=== PATIENT | female | born 1935 | race Caucasian/White ===

== ENCOUNTER → 2016-12-28 | Outpatient (CLI) | payer MEDICARE, BC ==
[~2016-12-28] MED LIST: ACETAMINOPHEN PR; ALEVE220 M1 PO; CALCIUM + D 6001 TA1 PO; CALCIUM 500 + D1 TAB PO; CERTAGEN PO; EC-NAPROSYN500 MG PO; LEVOTHYROXINE112 MCG PO; LIPITOR PO; LORTAB 7.5-5001 TAB PO; NORVASC PO; OMEPRAZOLE20 M2 PO; PERCOCET5/325 PO; PHENERGAN PO; PRAVASTATIN SOD80 MG PO; VITAMIN C PO; ZESTORETIC 20/11 TAB PO; ZESTORETIC PO
--- NOTE | ~2016-12-28 | MY6 ---
[facility] RADIOLOGY TEXT RESULTS PATIENT: ELMER DE LEON LOCATION: [facility] : 37 UNIT #: [id number] AGE: [address]: Gabriel Borden MD SEX: F ORDER DR: [id number] [facility]. [place], [place] [address] [id number] O MR#: [id number] Acc #: [id number] NAME: ELMER DE LEON : 1935 SEX: F STUDY DATE/TIME: 12/28/2016 14:36 UNIT: [facility] ROOM: STUDY DESCRIPTION: MY Mammogram Dx Dig Luis Attending Physician: Gabriel Borden M.D. Referring Physician: Gabriel Borden M.D. Ordering Physician: Gabriel Borden M.D. Primary Care Physician: Jhony Kohler D.O. MEDICAL IMAGING REPORT This report is preliminary unless electronic signature is present EXAM Bilateral digital diagnostic mammogram with CAD. DATE OF EXAM 12/28/2016 CLINICAL HISTORY 81-year-old female with diffuse left breast pain and medial right-sided breast pain. No personal history of breast cancer. FINDINGS The background breast parenchyma consists of scattered fibroglandular densities. No suspicious mass, microcalcification, architectural distortion. Exam is compared to prior mammogram dated 01/27/2016 and 01/15/2015. IMPRESSION Negative mammogram. BIRADS 1. RECOMMENDATIONS: Annual screening mammogram. Patients over the age of 40 are entered into a reminder system with target due date for the next mammogram. A result letter will also be sent to the patient. BIRADS: 1 Negative. Dictated by... Aubrey Amos M.D. THIS IS AN ELECTRONICALLY VERIFIED REPORT [facility] A Service [facility] RADIOLOGY TEXT RESULTS PATIENT: ELMER DE LEON LOCATION: [facility] : 37 UNIT #: [id number] AGE: [address]: Gabriel Borden MD SEX: F ORDER DR: Aubrey Amos M.D. at 12/28/2016 4:13 PM DIANA/dyan TD: 12/28/2016 15:55 JOB #: [id number] MEDICAL IMAGING REPORT Page 1 of 1 COPY
== END | disposition home or self-care (01) ==
LOC: CMAM 13:55
DX: N64.4 Mastodynia (principal)
CPT/HCPCS: G0204